=== PATIENT | male | born 1940 | race Asian ===

== ENCOUNTER → 2016-09-18 | Outpatient (CLI) | payer MEDICARE ==
[~2016-09-18] MED LIST: ACETAMINOPHEN500 M5 PO; ALLERGY SHOTS SUBQ; PREVACID PO; RHINOCORT AQUA8.6 GM; ZYRTEC PO
--- NOTE | ~2016-09-18 | CR63 ---
[facility] A Service of [facility] & [facility] RADIOLOGY TEXT RESULTS PATIENT: RAYMOND PEDRAZA LOCATION: [facility] : 40 UNIT #: [id number] AGE: [address]: Saba Pedraza MD SEX: M ORDER DR: [id number] [facility] [address] [place], [place] [address] [id number] O MR#: [id number] Acc #: [id number] NAME: RAYMOND PEDRAZA : 1940 SEX: M STUDY DATE/TIME: 09/18/2016 9:25 UNIT: [facility] ROOM: STUDY DESCRIPTION: CR Chest 2 View Attending Physician: Saba Pedraza M.D. Referring Physician: Saba Pedraza M.D. Ordering Physician: Saba Pedraza M.D. Primary Care Physician: Saba Pedraza M.D. MEDICAL IMAGING REPORT This report is preliminary unless electronic signature is present EXAM Chest, 09/18/2016, [facility]. HISTORY 76-year-old male patient chest pain, short of air, dizziness times 1 month. COMPARISON Chest, 12/07/2014. FINDINGS PA and lateral chest views show stable cardiomegaly. There is dilatation of the descending thoracic aorta. However, this appears stable. Bilateral lungs are expanded and remain clear with no infiltrates. Costophrenic angles are preserved. 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 These findings appear stable. No acute chest finding at this time. Dictated by... Agustin Alexandre M.D. THIS IS AN ELECTRONICALLY VERIFIED REPORT Agustin Alexandre M.D. at 09/19/2016 8:13 AM FRANDY/michelle TD: 09/18/2016 17:05 JOB #: [id number] MEDICAL IMAGING REPORT [facility] A Service of [facility] RADIOLOGY TEXT RESULTS PATIENT: RAYMOND PEDRAZA LOCATION: [facility] #: [id number] : 40 UNIT #: [id number] AGE: [address]: Saba Pedraza MD SEX: M ORDER DR: Page 1 of 1 COPY
== END | disposition home or self-care (01) ==
LOC: CRAD 09:04
DX: R05 Cough (principal); I77.810 Thoracic aortic ectasia; I51.7 Cardiomegaly
CPT/HCPCS: 71020

== ENCOUNTER → 2016-09-22 | Outpatient (CLI) | payer MEDICARE ==
--- NOTE | ~2016-09-22 | US37 ---
[facility] A Service of [facility] & [facility] RADIOLOGY TEXT RESULTS PATIENT: RAYMOND PEDRAZA LOCATION: [facility] : 40 UNIT #: [id number] AGE: [address]: Saba Pedraza MD SEX: M ORDER DR: [id number] [facility] [address] [place], [place] [address] [id number] O MR#: [id number] Acc #: [id number] NAME: RAYMOND PEDRAZA : 1940 SEX: M STUDY DATE/TIME: 09/22/2016 15:14 UNIT: [facility] ROOM: STUDY DESCRIPTION: US Carotid W/Doppler Bilateral Attending Physician: Saba Pedraza M.D. Referring Physician: Saba Pedraza M.D. Ordering Physician: Saba Pedraza M.D. Primary Care Physician: Saba Pedraza M.D. MEDICAL IMAGING REPORT This report is preliminary unless electronic signature is present EXAM Bilateral carotid duplex date of examination 09/22/2016 HISTORY Dizziness x2 weeks. FINDINGS There is patent flow seen throughout the right common carotid, internal carotid, and external carotid arteries. There is mild homogeneous, irregular appearing plaque that is seen in the proximal aspect of the right internal carotid artery. The right common carotid artery peak velocity is 62 cm/sec. The right internal carotid artery peak systolic over end diastolic velocities are: Proximal 49/12 cm/sec, mid 50/19 cm/sec, distal is 52/23 cm/sec. The right external carotid artery peak velocity is 75 cm/sec, vertebral artery 36 cm/sec. The right ICA/CCA ratio is 0.8. There is patent flow seen throughout the left common carotid, internal carotid, and external carotid arteries. There is some mild homogeneous regular appearing plaque seen in the left carotid bifurcation. The left common carotid artery peak velocity is 60 cm/sec. The left internal carotid artery peak systolic over end diastolic velocities are: Proximal 47/16 cm/sec, mid 43/17 cm/sec, distal 49/24 cm/sec. The left external carotid artery peak velocity is 67 cm/sec, vertebral artery 48 cm/sec. The left ICA/CCA ratio is 0.8. IMPRESSION 1. The right carotid artery has mild atherosclerosis, which is not hemodynamically significant by duplex criteria (less than 50%). 2. The left carotid artery has mild atherosclerosis, which is not hemodynamically significant by duplex criteria (less than 50%) 3. Vertebral flow is antegrade bilaterally. [facility] A Service of [facility] RADIOLOGY TEXT RESULTS PATIENT: RAYMOND PEDRAZA LOCATION: [facility] : 40 UNIT #: [id number] AGE: [address]: Saba Pedraza MD SEX: M ORDER DR: Dictated by... Paulo Heredia M.D. THIS IS AN ELECTRONICALLY VERIFIED REPORT Paulo Heredia M.D. at 09/23/2016 7:46 AM SURY/yunior TD: 09/23/2016 05:49 JOB #: [id number] MEDICAL IMAGING REPORT Page 1 of 1 COPY
== END | disposition home or self-care (01) ==
LOC: CNIV 14:24
DX: R42 Dizziness and giddiness (principal); I65.23 Occlusion and stenosis of bilateral carotid arteries
CPT/HCPCS: 93880

== ENCOUNTER → 2016-09-29 | Outpatient (CLI) | payer MEDICARE | END | disposition home or self-care (01) | LOC: CECH 08:00 | DX: I51.7 Cardiomegaly (principal); I34.0 Nonrheumatic mitral (valve) insufficiency; I36.1 Nonrheumatic tricuspid (valve) insufficiency; I37.1 Nonrheumatic pulmonary valve insufficiency | CPT/HCPCS: 93306 ==